=== PATIENT | male | born 1985 | race Caucasian/White ===

== ENCOUNTER → 2016-11-10 | Outpatient (CLI) | payer OTHER ==
[2016-11-10 13:13] LABS: DAYS OF ABSTINENCE 5; METHOD OF COLLECTION MASTURBATION; SEMEN TIME OF COLLECTION 1145; TYPE OF SPECIMEN CONTAINER STERILE CUP
[2016-11-10 13:14] LABS: SEMEN VOLUME 1.3 ML (>1.5)
[2016-11-10 13:17] LABS: SEMEN COLOR YELLOW-GRAY (GRY/GRYWHTE)
[2016-11-10 13:18] LABS: SPERM VIABILITY STAIN NOT INDICATED % (>58%)
== END | disposition home or self-care (01) ==
LOC: C.LAB 12:26
PROVIDERS: ATTEND Obstetrics & Gynecology
DX: Z31.41 Encounter for fertility testing (principal)

== ENCOUNTER → 2017-10-27 | Outpatient (CLI) | payer OTHER ==
--- NOTE | 2017-10-27 09:46 | DIAGNOSTIC IMAGING REPORT ---
L KNEE 4 OR MORE CLINICAL HISTORY: LEFT KNEE PAIN AND SWELLING S/P INJURY COMPARISON: None. DISCUSSION: The bones and joint spaces appear intact. There is no evidence of fracture, dislocation or bony disease. Paraspinal joint effusion IMPRESSION: Very small joint effusion. Otherwise negative study. The above report was generated using voice recognition software. It may contain grammatical, syntax or spelling errors. Electronically signed by: Roberto Carlos Zaragoza M.D. 10/27/2017 9:45 AM Dictated Date/Time: 10/27/2017 9:44 AM
== END | disposition home or self-care (01) ==
LOC: C.RDSM 09:15
PROVIDERS: ATTEND Family Medicine
DX: M25.562 Pain in left knee (principal); S89.92XA Unspecified injury of left lower leg, initial encounter; X58.XXXA Exposure to other specified factors, initial encounter